=== PATIENT | female | born 1955 | race Caucasian/White ===

== ENCOUNTER 2022-08-29 15:57 | Emergency (ER) | payer MEDICAID, SELFPAY ==
[2022-08-29] VITALS (10 sets, daily range): BP systolic 147–221; BP diastolic 57–129; PULSE 53–83; RESP 16–19; TEMP 36.4–36.8; O2SAT 93–97; BMI 39.2
--- NOTE | 2022-08-29 16:16 | ECG_ITS ---
APPROVED REPORT Exam: Resting ECG HR:67 bpm ECG Measurements Heart Rate 67 AXES [place] 143 P 65 QRSd 84 QRS 70 QT 406 T 66 QTc 421 Conclusion SINUS RHYTHM WITH SINUS ARRHYTHMIA Atrial abnormality BORDERLINE ECG UNCONFIRMED REPORT Electronically signed by : Conrado Weiss MD 08/30/2022 07:04:57
--- NOTE | 2022-08-29 16:16 | CT_ITS ---
PROCEDURE INFORMATION: Exam: CT Head Without Contrast Exam date and time: 08/29/2022 4:28 PM Age: 66 years old Clinical indication: Pain; Headache not specified; Additional info: JEAN, HTN TECHNIQUE: Imaging protocol: Computed tomography of the head without contrast. Radiation optimization: All CT scans at this facility use at least one of these dose optimization techniques: automated exposure control; mA and/or kV adjustment per patient size (includes targeted exams where dose is matched to clinical indication); or iterative reconstruction. REPORTING DATA: Count of CT and Cardiac NM exams in prior 12 months: This patient has received 0 known CTs and 0 known cardiac nuclear medicine studies in the 12 months prior to the current study. COMPARISON: No relevant prior studies available. FINDINGS: Brain: Normal. No hemorrhage. Unremarkable white matter. No mass effect. Cerebral ventricles: No ventriculomegaly. Paranasal sinuses: Visualized sinuses are unremarkable. No fluid levels. Mastoid air cells: Visualized mastoid air cells are well aerated. Bones/joints: Unremarkable. No acute fracture. Soft tissues: Unremarkable. IMPRESSION: No acute intracranial abnormality.
--- NOTE | 2022-08-29 16:25 | PC.NURSE ---
PT TRANSPORTED TO RADIOLOGY VIA WHEELCHAIR.
[2022-08-29 16:37] LABS: Basophils # 0.3 K/mm3 (0-0.2); Basophils % 2.2 % (0.1-2.0); Eosinophils # 0.7 K/mm3 (0.0-0.4); Eosinophils % 5.4 % (0.1-12.0); Hematocrit 53.1 % (37.0-47.0); Lymphocytes # 4.8 K/mm3 (0.7-4.5); Lymphocytes % 39.3 % (10-50); Mean Corpuscular HGB Conc 34.4 g/dL (31.8-35.4); Mean Corpuscular Hemoglobin 31.1 pg (27.0-31.2); Mean Corpuscular Volume 90.3 fl (81-99); Mean Platelet Volume 10.7 fl (7.4-10.4); Monocytes # 0.8 K/mm3 (0.1-1.0); Monocytes % 6.4 % (1.7-9.3); Neutrophils # 5.8 K/mm3 (1.8-7.8); Neutrophils % 46.7 % (37.0-80.0); Platelet Count 285 K/mm3 (142-424); Red Blood Count 5.88 M/mm3 (4.20-5.40); Red Cell Distribution Width 13.9 % (11.5-17.5); White Blood Count 12.3 K/mm3 (4.8-10.8)
[2022-08-29 16:38] LABS: Hemoglobin 18.3 g/dL (12.2-16.2)
[2022-08-29 16:40] LABS: Chloride 107 mmol/L (98-107); Sodium 139 mmol/L (136-145)
[2022-08-29 16:42] LABS: Blood Urea Nitrogen 16 mg/dl (7-17); Creatinine Clearance Estimated 99 mL/min (50-200); Estimated Glomerular Filt Rate 56 ml/min (>60); GFR (African American) 68 ML/MIN (>60)
[2022-08-29 16:43] LABS: Alanine Aminotransferase 41 U/L (12-78); Albumin Level 4.2 g/dl (3.5-5.0); Albumin/Globulin Ratio 1.1 (1.1-1.8); Alkaline Phosphatase 125 U/L (38-126); Aspartate Amino Transferase 102 U/L (14-36); Bilirubin,Total 0.7 mg/dl (0.2-1.3); Carbon Dioxide 23 mmol/L (22.0-30.0); Globulin 3.9 g/dL (1.3-3.2); Glucose 110 mg/dl (74-100); Total Protein,Serum 8.1 g/dl (6.3-8.2)
[2022-08-29 16:55] LABS: Troponin I < 0.01 ng/ml (0.00-0.034)
--- NOTE | 2022-08-29 17:16 | HMH.EDGENADL ---
Discharge Plan Disposition Patient Disposition: Home, Self-Care Condition: Good Prescriptions Prescriptions: New metoprolol tartrate 50 mg tablet 50 mg PO BID Qty: 60 0RF No Action losartan 50 mg tablet 50 mg PO DAILY prednisone 10 mg tablet 10 mg PO DAILY Rx Instructions: ONCE DAILY FOR 3 DAYS, THEN PRN FOR 30 DAYS magnesium oxide 400 mg (241.3 mg magnesium) tablet 400 mg PO DAILY levothyroxine 125 mcg tablet 125 mcg PO DAILY omeprazole 20 mg capsule,delayed release(DR/EC) 20 mg PO DAILY fluticasone propion-salmeterol [Advair Diskus] 100-50 mcg/dose blister with device 1 inh INHALATION BID albuterol sulfate 90 mcg/actuation HFA aerosol inhaler 1 inh INHALATION NEEDED PRN (Reason: COPD) cholecalciferol (vitamin D3) 125 mcg (5,000 unit) capsule 125 mcg PO DAILY Referrals Follow up/Referrals: Provider,Referral, MD [Primary Care Provider] - See instructions Clinical Impressions Clinical Impression: Hypertensive emergency Instructions Patient Instructions: DI for Malignant Hypertension Print Language Print Language: Emirati Discharge ED Provider: Mike Elaine General Adult HPI General Chief complaint: Recheck/Abnormal Lab/Rx Stated complaint: HBP Time Seen by Provider: 08/29/22 18:30 Mode of Arrival: Ambulatory Source of Information: Patient Limitations: No Limitations Description of Symptoms (Recalled from ER Triage Doc. by RN): PT STATES SHE HAS HAD HYPERTENSION FOR 2 DAYS, SEEN BY RODOLFO LOWRY APRN ON WEDNESDAY FOR THE SAME THING, REPORTS CHEST PAIN YESTERDAY BUT DENIES ANY TODAY, REPORTS A CRUSHING HEADACHE AND VISION CHANGES History of Present Illness HPI narrative: Patient presents to the emergency department with headache, nausea and elevated blood pressure. The patient states that she has had elevated blood pressure in the past which she is monitoring but has never had a headache like today. She describes it as frontal with blurry vision. Denies any fever, chills, cough, congestion, chest pain, shortness of breath. She states that she did have chest pain yesterday which was transient in nature. Denies any shortness of breath Related Data Home Medications Medication Instructions Recorded Confirmed albuterol sulfate 90 mcg/actuation 1 inh inhalation NEEDED PRN COPD 08/29/22 08/29/22 aerosol inhaler cholecalciferol (vitamin D3) 125 125 mcg PO DAILY Supplement 08/29/22 08/29/22 mcg (5,000 unit) capsule fluticasone 100 mcg-salmeterol 50 1 inh inhalation BID COPD 08/29/22 08/29/22 mcg/dose blistr powdr for inhalation (Advair Diskus) levothyroxine 125 mcg tablet 125 mcg PO DAILY THRYOID 08/29/22 08/29/22 losartan 50 mg tablet 50 mg PO DAILY Hypertension 08/29/22 08/29/22 magnesium oxide 400 mg (241.3 mg 400 mg PO DAILY . 08/29/22 08/29/22 magnesium) tablet omeprazole 20 mg capsule,delayed 20 mg PO DAILY . 08/29/22 08/29/22 release prednisone 10 mg tablet 10 mg PO DAILY STEROID 08/29/22 08/29/22 Previous Rx's Medication Instructions Recorded metoprolol tartrate 50 mg tablet 50 mg PO BID #60 tabs 08/29/22 Allergies Allergy/AdvReac Type Severity Reaction Status Date / Time latex Allergy Verified 08/29/22 16:20 Tetanus Vaccines and Toxoid Allergy Verified 08/29/22 16:38 PFSH [facility] Disclaimer: The information contained in this section may have been updated after the patient was seen, as this information can be updated by other users. Social History Smoking Status: Current every day smoker alcohol intake: never current occupational status: retired Travel in the last 8 weeks: None ROS Obtained: Yes All systems reviewed & no additional complaints except as documented Constitutional Constitutional: Reports headache(s) ENT Ears, Nose, Mouth, and Throat: Reports headache(s) Neurologic Neurologic: Reports headache(s) and Reports ot
--- NOTE | 2022-08-29 17:30 | PC.NURSE ---
checked on pt no complaints, sister and call light at bedside
--- NOTE | 2022-08-29 18:23 | PC.NURSE ---
pt asked for a cranberry juice, er approved, so gave one family at bedside
== END 2022-08-29 18:54 | disposition home or self-care (01) ==
LOC: UTC 16:04 → ER 16:04
PROVIDERS: Emergency Provider Emergency Medicine
DX: I10 Essential (primary) hypertension (principal); R07.9 Chest pain, unspecified; R51.9 Headache, unspecified; R11.10 Vomiting, unspecified; F17.210 Nicotine dependence, cigarettes, uncomplicated
CPT/HCPCS: 70450; 80053; 84484; 85025; 93005; 96374; 96375; 99285

== ENCOUNTER → 2022-09-04 08:17 | Outpatient (CLI) | payer MEDICAID, SELFPAY ==
--- NOTE | 2022-09-04 15:39 | MM_ITS ---
PROCEDURE INFORMATION: Exam: MG Bilateral Screening 3D Mammography Exam date and time: 09/04/2022 3:32 PM Age: 66 years old Clinical indication: Screening examination TECHNIQUE: Imaging protocol: Bilateral Screening tomosynthesis and 2D mammography including computer-aided detection (CAD) when performed. COMPARISON: No relevant prior studies available. FINDINGS: MAMMOGRAPHY: Breast composition: The breasts are almost entirely fatty. Mass: None. Architectural distortion: None. Calcifications: No suspicious calcifications. Asymmetric density: None. Skin thickening: None. Axillary adenopathy: None. IMPRESSION: No mammographic evidence of malignancy. Annual screening is recommended unless otherwise clinically indicated. ASSESSMENT: BI-RADS Category 1: Negative
== END ==
PROVIDERS: Visit Provider Nurse Practitioner Family
DX: Z12.31 Encounter for screening mammogram for malignant neoplasm of breast (principal)
CPT/HCPCS: 77063; 77067

== ENCOUNTER 2022-10-01 11:50 | Day surgery (SDC) | payer MEDICAID, SELFPAY ==
[2022-09-23 11:03] VITALS: BMI 38.7
[2022-10-01 12:17] VITALS: BP 175/83; PULSE 64; RESP 18; TEMP 36.9; O2SAT 96
--- NOTE | 2022-10-01 12:55 | P.PN_ITS ---
[facility] Disclaimer: The information contained in this section may have been updated after the patient was seen, as this information can be updated by other users. Medical History Christiano's disease Rheumatoid arthritis Surgical History History of cholecystectomy History of tonsillectomy Family History Other Family history of TIAs Family history of cancer Family history of diabetes mellitus type II Family history of myocardial infarction Social History Smoking Status: Current every day smoker tobacco type: cigarettes packs per day: 1 pack-years: 45 alcohol intake: current substance use type: denies use current occupational status: retired Travel in the last 8 weeks: None household members: family housing: house marital status: single education level: high school caffeine: Yes special isauro needs: No agree to transfusion: No do you feel safe at home: Yes victim of physical abuse: No victim of emotional abuse: No victim of sexual abuse: No would you like helpful sources: No [facility] Anesthesia Checklist Patient Identification Patient Identification: Arm Band and Verbal (Name & ) Structural Data Admitted From: Home Planned Operative Procedure/s: Colonoscopy Consent for Planned Operative Procedure(s) Verified: Yes NPO Status Verified Time NPO: 00:00 Airway Assessment C-Spine Mobility Assessed: Yes TMJ Mobility Assessed: Yes Dentition: Partials Neurological Assessment Level of Consciousness: Awake Hx Seizures: No Numbness or tingling in extremities: No Anesthesia Plan Anesthesia Risk discussed: Yes Anesthesia Plan: Verified ASA Class: III Anesthesia Type: MAC
[2022-10-01 13:16] VITALS: O2SAT 97
--- NOTE | 2022-10-01 13:28 | HMH.SCOPE ---
Procedure: Date: 10/01/22 Patient Date of :: 1955 Procedure Performed:: Colonoscopy and snare polypectomy Indications:: Family history of colon cancer Performing Provider:: Mirta Murillo MD Referring Provider:: Lane Farooq MD Sedation:: Propofol Procedure:: After placing the patient in the left lateral decubitus position, the colonoscopy was gently inserted into the rectum and under direct visualization advanced to the cecum which was identified by transillumination in the right lower quadrant, identification of the ileocecal valve, appendiceal orifice, and cecal strap. Color, texture, mucosa, and anatomy of the colon were carefully examined with the scope. Findings:: Anal canal: normal Rectum: normal Sigmoid colon: normal, 0.25 cm polyp identified and removed with snare Descending colon: normal without polyps or inflammatory changes Splenic flexure: normal Transverse colon: normal without polyps or inflammatory changes Hepatic flexure: normal Ascending colon: normal without polyps or inflammatory changes Cecum: normal Terminal ileum: not visualized Impression: Sigmoid polyp Specimens:: Sigmoid polyp Recommendations:: Follow up examination in about THREE-FIVE years or so, sooner if clinically indicated. Complications:: None Estimated blood obtained (mL): 0
[2022-10-01 13:31] VITALS: BP 86/49; PULSE 75; RESP 14; TEMP 36.8; O2SAT 90
[2022-10-01 13:41] VITALS: BP 109/55; PULSE 62; RESP 17; O2SAT 95
[2022-10-01 13:51] VITALS: BP 122/55; PULSE 70; RESP 18; O2SAT 96
[2022-10-01 14:01] VITALS: BP 118/78; PULSE 78; RESP 17; O2SAT 96
== END 2022-10-01 14:09 | disposition home or self-care (01) ==
PROVIDERS: PCP Nurse Practitioner Family; Visit Provider Internal Medicine Gastroenterology
PROC: 0DJD8ZZ Inspection of Lower Intestinal Tract, Via Natural or Artificial Opening Endoscopic (ICD-10-PCS; CPT 45378; principal; 2022-10-01 13:00)
DX: Z12.11 Encounter for screening for malignant neoplasm of colon (principal); K63.5 Polyp of colon; Z80.0 Family history of malignant neoplasm of digestive organs
CPT/HCPCS: 45378

== ENCOUNTER → 2023-02-16 12:52 | Outpatient (CLI) | payer MEDICARE, SELFPAY ==
[2023-02-16 13:28] LABS: Basophils # 0.1 K/mm3 (0-0.2); Basophils % 0.6 % (0.1-2.0); Eosinophils # 0.2 K/mm3 (0.0-0.4); Eosinophils % 2.7 % (0.1-12.0); Hematocrit 51.9 % (37.0-47.0); Hemoglobin 17.1 g/dL (12.2-16.2); Lymphocytes # 2.9 K/mm3 (0.7-4.5); Lymphocytes % 35.4 % (10-50); Mean Corpuscular Hemoglobin 29.8 pg (27.0-31.2); Mean Corpuscular Volume 90.2 fl (81-99); Mean Platelet Volume 9.6 fl (7.4-10.4); Monocytes # 0.7 K/mm3 (0.1-1.0); Monocytes % 7.8 % (1.7-9.3); Neutrophils # 4.4 K/mm3 (1.8-7.8); Neutrophils % 53.4 % (37.0-80.0); Platelet Count 233 K/mm3 (142-424); Red Blood Count 5.75 M/mm3 (4.20-5.40); Red Cell Distribution Width 13.6 % (11.5-17.5); White Blood Count 8.3 K/mm3 (4.8-10.8)
[2023-02-16 13:51] LABS: Alanine Aminotransferase 26 U/L (12-78); Albumin/Globulin Ratio 1.1 (1.1-1.8); Alkaline Phosphatase 123 U/L (38-126); Amylase 61 U/L (30-110); Anion Gap 14.5 mEq/L (5-15); Aspartate Amino Transferase 55 U/L (14-36); Bilirubin,Total 0.3 mg/dl (0.2-1.3); Blood Urea Nitrogen 11 mg/dl (7-17); Calcium 9.6 mg/dl (8.4-10.2); Carbon Dioxide 25 mmol/L (22.0-30.0); Chloride 104 mmol/L (98-107); Estimated Glomerular Filt Rate 50 ml/min (>60); GFR (African American) 60 ML/MIN (>60); Globulin 3.5 g/dL (1.3-3.2); Glucose 102 mg/dl (74-100); Lipase 104 U/L (23-300); Potassium 4.5 mmoL/L (3.5-5.1); Sodium 139 mmol/L (136-145); Total Protein,Serum 7.5 g/dl (6.3-8.2)
== END ==
PROVIDERS: PCP Nurse Practitioner Family; Visit Provider Nurse Practitioner Family
DX: R10.11 Right upper quadrant pain (principal); K52.9 Noninfective gastroenteritis and colitis, unspecified
CPT/HCPCS: 36415; 80053; 82150; 83690; 85025

== ENCOUNTER 2023-08-27 18:04 | Outpatient (CLI) | payer MEDICARE, SELFPAY ==
[2023-08-27 19:10] LABS: Basophils # 0.2 K/mm3 (0-0.2); Eosinophils # 0.2 K/mm3 (0.0-0.4); Eosinophils % 2.5 % (0.1-12.0); Hematocrit 52.7 % (37.0-47.0); Hemoglobin 17.2 g/dL (12.2-16.2); Lymphocytes # 4.1 K/mm3 (0.7-4.5); Lymphocytes % 44.8 % (10-50); Mean Corpuscular HGB Conc 32.7 g/dL (31.8-35.4); Mean Corpuscular Hemoglobin 31.6 pg (27.0-31.2); Mean Corpuscular Volume 96.7 fl (81-99); Monocytes # 0.6 K/mm3 (0.1-1.0); Monocytes % 6.3 % (1.7-9.3); Neutrophils # 4.1 K/mm3 (1.8-7.8); Neutrophils % 44.4 % (37.0-80.0); Platelet Count 283 K/mm3 (142-424); Red Blood Count 5.45 M/mm3 (4.20-5.40); Red Cell Distribution Width 13.7 % (11.5-17.5); White Blood Count 9.2 K/mm3 (4.8-10.8)
[2023-08-27 19:30] LABS: Alanine Aminotransferase 30 U/L (12-78); Albumin Level 4.1 g/dl (3.5-5.0); Albumin/Globulin Ratio 1.1 (1.1-1.8); Alkaline Phosphatase 135 U/L (38-126); Anion Gap 12.7 mEq/L (5-15); Aspartate Amino Transferase 73 U/L (14-36); Bilirubin,Total 0.7 mg/dl (0.2-1.3); Blood Urea Nitrogen 18 mg/dl (7-17); Calcium 9.7 mg/dl (8.4-10.2); Carbon Dioxide 25 mmol/L (22.0-30.0); Chloride 105 mmol/L (98-107); Chol/HDL Ratio 7.2 (1-3.5); Cholesterol 251 mg/dl (140-200); Estimated Glomerular Filt Rate 50 ml/min (>60); GFR (African American) 60 ML/MIN (>60); Globulin 3.6 g/dL (1.3-3.2); Glucose 79 mg/dl (74-100); HDL Cholesterol 35 mg/dl (40-60); Magnesium 2.1 mg/dl (1.6-2.3); Potassium 5.7 mmoL/L (3.5-5.1); Sodium 137 mmol/L (136-145); Total Protein,Serum 7.7 g/dl (6.3-8.2); Triglycerides 197 mg/dl (30-150); VLDL Cholesterol 39 mg/dL (0-40)
[2023-08-27 19:41] LABS: Direct LDL Cholesterol 145.94 mg/dL (100-129)
[2023-08-27 19:47] LABS: 25-OH Vitamin D, Total 82.2 ng/mL (30-100)
[2023-08-27 20:01] LABS: Thyroid Stimulating Hormone 8.75 uIU/mL (0.465-4.68)
== END 2023-08-27 23:59 ==
LOC: LAB.DROPOF 18:06
PROVIDERS: PCP Internal Medicine; Visit Provider Internal Medicine
DX: I10 Essential (primary) hypertension (principal); E03.9 Hypothyroidism, unspecified; E78.5 Hyperlipidemia, unspecified; I73.9 Peripheral vascular disease, unspecified; J44.9 Chronic obstructive pulmonary disease, unspecified; E55.9 Vitamin D deficiency, unspecified; M05.79 Rheumatoid arthritis with rheumatoid factor of multiple sites without organ or systems involvement
CPT/HCPCS: 80053; 80061; 82306; 83735; 84443; 85025

== ENCOUNTER 2023-09-20 10:37 | Outpatient (CLI) | payer MEDICARE, SELFPAY ==
--- NOTE | 2023-09-20 10:41 | US_ITS ---
FINAL REPORT TECHNIQUE: Sonographic images of the abdomen were obtained in all four quadrants. CLINICAL HISTORY: ELEVATED LIVER ENZYMES COMPARISON: None FINDINGS: LIVER: Homogeneous. No focal hepatic lesion or intrahepatic biliary dilatation. The portal vein is patent. GALLBLADDER: Absent. The common duct measures 5 mm, within normal limits for age. PANCREAS: Tail is obscured, head is unremarkable. RIGHT KIDNEY: 9.7 cm. No hydronephrosis, mass or stone. LEFT KIDNEY: 10.9 cm. No hydronephrosis, mass or stone. SPLEEN: 8.9 cm. No focal splenic lesion. AORTA/IVC: No abdominal aortic aneurysm. Visualized IVC within normal limits. OTHER: No ascites. IMPRESSION: Cholecystectomy. Otherwise, unremarkable ultrasound of the abdomen. Reviewed, Interpreted and Dictated by Isamar Parry MD Transcribed by Yu Weber Authenticated and [facility]
== END 2023-09-20 23:59 ==
LOC: RAD 10:37
PROVIDERS: PCP Internal Medicine; Visit Provider Internal Medicine
DX: R94.4 Abnormal results of kidney function studies (principal)
CPT/HCPCS: 76700

== ENCOUNTER 2023-11-03 16:48 | Outpatient (CLI) | payer MEDICARE, SELFPAY ==
[2023-11-03 21:39] LABS: Chloride 106 mmol/L (98-107); Sodium 140 mmol/L (136-145)
[2023-11-03 21:40] LABS: Potassium 4.6 mmoL/L (3.5-5.1)
[2023-11-03 21:42] LABS: Alanine Aminotransferase 31 U/L (12-78); Alkaline Phosphatase 122 U/L (38-126); Aspartate Amino Transferase 82 U/L (14-36); Bilirubin,Total 0.4 mg/dl (0.2-1.3); Blood Urea Nitrogen 15 mg/dl (7-17); Estimated Glomerular Filt Rate 50 ml/min (>60); GFR (African American) 60 ML/MIN (>60)
[2023-11-03 21:43] LABS: Albumin Level 3.8 g/dl (3.5-5.0); Albumin/Globulin Ratio 1.2 (1.1-1.8); Anion Gap 15.6 mEq/L (5-15); Calcium 9.6 mg/dl (8.4-10.2); Carbon Dioxide 23 mmol/L (22.0-30.0); Globulin 3.1 g/dL (1.3-3.2); Glucose 78 mg/dl (74-100); Total Protein,Serum 6.9 g/dl (6.3-8.2)
[2023-11-03 22:09] LABS: Thyroid Stimulating Hormone 4.17 uIU/mL (0.465-4.68)
== END 2023-11-03 23:59 | disposition home or self-care (01) ==
LOC: LAB.DROPOF 16:51
PROVIDERS: PCP Internal Medicine; Visit Provider Internal Medicine
DX: E03.9 Hypothyroidism, unspecified (principal); E78.5 Hyperlipidemia, unspecified; R94.4 Abnormal results of kidney function studies; R94.5 Abnormal results of liver function studies; M05.70 Rheumatoid arthritis with rheumatoid factor of unspecified site without organ or systems involvement; M77.42 Metatarsalgia, left foot
CPT/HCPCS: 80053; 84443

== ENCOUNTER 2024-03-21 14:15 | Outpatient (CLI) | payer MEDICARE, SELFPAY ==
[2024-03-21 17:12] LABS: Alanine Aminotransferase 27 U/L (12-78); Albumin Level 4.1 g/dl (3.5-5.0); Albumin/Globulin Ratio 1.3 (1.1-1.8); Alkaline Phosphatase 113 U/L (38-126); Aspartate Amino Transferase 69 U/L (14-36); Bilirubin,Total 0.6 mg/dl (0.2-1.3); Blood Urea Nitrogen 17 mg/dl (7-17); Calcium 9.8 mg/dl (8.4-10.2); Carbon Dioxide 22 mmol/L (22.0-30.0); Chloride 109 mmol/L (98-107); Cholesterol 205 mg/dl (140-200); Estimated Glomerular Filt Rate 55 ml/min (>60); GFR (African American) 67 ML/MIN (>60); Globulin 3.2 g/dL (1.3-3.2); Glucose 86 mg/dl (74-100); HDL Cholesterol 41 mg/dl (40-60); Sodium 137 mmol/L (136-145); Total Protein,Serum 7.3 g/dl (6.3-8.2); Triglycerides 209 mg/dl (30-150); VLDL Cholesterol 42 mg/dL (0-40)
[2024-03-21 17:37] LABS: Erythrocyte Sedimentation Rate 14 mm/hr (0-30)
[2024-03-21 17:47] LABS: Anion Gap 10.5 mEq/L (5-15); Potassium 4.5 mmoL/L (3.5-5.1)
== END 2024-03-21 23:59 | disposition home or self-care (01) ==
LOC: LAB.DROPOF 03-22 13:34
PROVIDERS: PCP Internal Medicine; Visit Provider Internal Medicine
DX: E78.5 Hyperlipidemia, unspecified (principal); M19.90 Unspecified osteoarthritis, unspecified site; I10 Essential (primary) hypertension; J44.89 Other specified chronic obstructive pulmonary disease; E66.8 Other obesity; E03.9 Hypothyroidism, unspecified; F17.200 Nicotine dependence, unspecified, uncomplicated; N28.9 Disorder of kidney and ureter, unspecified; Z68.35 Body mass index [BMI] 35.0-35.9, adult
CPT/HCPCS: 80053; 80061; 85651